=== PATIENT | male | born 1940 | race Two or more races ===

== ENCOUNTER 2018-06-17 21:40 | Observation (INO) | payer OTHER ==
[~2018-06-17] VITALS: Ht 152.4 cm; Wt 60.5 kg
[~2018-06-17 21:40] MED LIST: ASPI-535 PO; LISI-313 PO; METO25TA4 PO; NITR0.4T39 SL; SIMV20TA2 PO
[2018-06-17 21:46] VITALS: Ht 152.4 cm; Wt 60.5 kg
--- NOTE | 2018-06-17 22:14 | ERD ---
ER Documentation Chief Complaint Chief Complaint L arm pain x 1day, no injury; was told 2 go 2 ED x Trop work-ups HPI Very pleasant 77-year-old gentleman history of cardiac disease with 2 stents who presents with mild chest discomfort and left arm discomfort that is anginal equivalent over the past 2 days. Patient states that he took aspirin today. Patient only has 1 out of 10 discomfort currently. He went to an urgent care wh o sent him to the emergency room. Patient denies pleuritic pain fevers chills or cough. ROS All systems reviewed and are negative except as per history of present illness. Medications Home Meds Reported Medications Aspirin Ec (Aspir 81) 81 Mg Tablet.dr, 81 MG PO DAILY 12/27/10 Simvastatin (Simvastatin) 20 Mg Tablet, 20 MG PO DAILY 12/27/10 Nitroglycerin* (Nitrostat*) 0.4 Mg Tab.subl, 0.4 MG SL Q5MIN PRN 12/27/10 Lisinopril* (Lisinopril*) 5 Mg Tablet, 5 MG PO DAILY 12/27/10 Metoprolol Tartrate* (Lopressor*) 25 Mg Tablet, 25 MG PO 1/2 TAB BID 12/27/10 Allergies Allergies: Coded Allergies: No Known Drug Allergies (Verified Allergy, 12/27/10) PMhx/Soc History of Surgery: Yes (CABG 1997, ANGIOGRAM 2004) Anesthesia Reaction: No Hx Neurological Disorder: No Hx Respiratory Disorders: No Hx Cardiac Disorders: Yes (ANGIOGRAM) Hx Psychiatric Problems: No Hx Miscellaneous Medical Probl: No Hx Alcohol Use: No Hx Substance Use: No Hx Tobacco Use: No FmHx Family History: No diabetes Physical Exam Vitals Vital Signs Date Temp Pulse Resp B/P (MAP) Pulse Ox O2 O2 Flow FiO2 Time Delivery Rate 06/17/18 97.9 67 18 175/80 99 21:46 (111) Physical Exam General: Well developed, well nourished, no acute distress Head: Normocephalic, atraumatic. Eyes: Pupils equally reactive, EOM intact ENT: Moist mucous membranes Neck: Supple, no lymphadenopathy Respiratory: Lungs clear bilaterally, no distress Cardiovascular: RRR, no murmurs, rubs, or gallops Abdominal: Soft, non-tender, non-distended, no peritoneal signs : Deferred MSK: No edema, no unilateral swelling, 5/5 strength Neurologic: Alert and oriented, moving all extremities, normal speech, no focal weakness, no cerebellar signs Skin: No rash Psych: Normal mood Result Diagram: 06/17/18221406/17/182214 Results 24 hrs Laboratory Tests Test 06/17/18 22:15 White Blood Count 6.8 10^3/ul Red Blood Count 4.47 10^6/ul Hemoglobin 14.1 g/dl Hematocrit 42.1 % Mean Corpuscular Volume 94.2 fl Mean Corpuscular Hemoglobin 31.5 pg Mean Corpuscular Hemoglobin Concent 33.5 g/dl Red Cell Distribution Width 12.2 % Platelet Count 117 10^3/UL Mean Platelet Volume 11.0 fl Immature Granulocytes % 0.300 % Neutrophils % 52.6 % Lymphocytes % 28.9 % Monocytes % 9.9 % Eosinophils % 7.1 % Basophils % 1.2 % Nucleated Red Blood Cells % 0.0 /100WBC Immature Granulocytes # 0.020 10^3/ul Neutrophils # 3.6 10^3/ul Lymphocytes # 2.0 10^3/ul Monocytes # 0.7 10^3/ul Eosinophils # 0.5 10^3/ul Basophils # 0.1 10^3/ul Nucleated Red Blood Cells # 0.0 10^3/ul Sodium Level 137 mmol/L Potassium Level 3.8 mmol/L Chloride Level 102 mmol/L Carbon Dioxide Level 29 mmol/L Anion Gap 6 Blood Urea Nitrogen 12 mg/dl Creatinine 0.77 mg/dl Est Glomerular Filtrat Rate mL/min mL/min Glucose Level 171 mg/dl Calcium Level 9.4 mg/dl Troponin I < 0.012 ng/ml Procedures/MDM EKG, MONITORS, & DIAGNOSTIC IMAGING: EKG: I reviewed and interpreted a 12-lead EKG. Rhythm: Normal sinus rhythm ST Changes: No contiguous ST segment elevations T waves: No contiguous T wave inversions Impression: [No evidence of acute cardiac ischemia] Repeat EKG: EKG: I reviewed and interpreted a 12-lead EKG. Rhythm: Normal sinus rhythm ST Changes: No contiguous ST segment elevations T waves: No contiguous T wave inversions Impression: [No evidence of acute cardiac ischemia] Chest x-ray: I reviewed and interpreted a 1 view of the chest Mediastinum: No enlargement Cardiac silhouette: No cardiomegaly Airspace: Clear lung ortega bilaterally without evidence of pneumothorax Bones: No evidence of fracture PROCEDURES: [None] LAB INTERPRETATION: * Negative troponin MEDICAL DECISION MAKING: The patient's history, physical exam and clinical presentation is concerning for possible cardiogenic etiology and acute coronary syndrome. Based on the patient's clinical exam and history and risk factors, I have a much lower clinical concern for pulmonary embolism, acute aortic dissection, pneumothorax, pneumonia, cardiac tamponade HEART Score: 4 MACE Rate: 16.6% Shared Decision Making: We had a conversation regarding risk stratification, MACE rate, and the risks, benefits, alternatives of disposition planning options. Disposition planning: Admit ER COURSE: * ASA has been taken prior to arrival. * No chest pain currently CONSULTATION: Primary administration manager, Dr. Stacy landon DISPOSITION PLAN: Telemetry admission for management of chest pain to rule out acute coronary syndrome, serial enzymes, risk stratification and consideration of provocative testing CONSULTATION: Accepting care team and consultations: I discussed the current laboratory data, diagnostic imaging and emergency care provided. Admitting team: Dr. Hernadez Admitting team indication: Insurance directed Departure Diagnosis: Primary Impression: Chest pain Chest pain type: unspecified Qualified Codes: R07.9 - Chest pain, unspeci fied Condition: Stable VITO ANDRADE MD Jun 17, 2018 22:14
[2018-06-17] MEDS ORDERED: ACETAMINOPHEN 325 MG TAB PO PRN (23:30)
[2018-06-17] MEDS ORDERED: ONDANSETRON 4 MG INJ IV PRN (23:30)
--- NOTE | 2018-06-17 23:34 | HP ---
Date/Time of Note Date/Time of Note DATE: 06/17/18 TIME: 23:34 Assessment/Plan VTE Prophylaxis Pharmacological prophylaxis: heparin Lines/Catheters IV Catheter Type (from Nrs): Saline Lock Assessment/Plan Hospital Course 77-year-old male with with a history of CAD with stent x2 4 years ago, CABG about 20 years ago here was left arm pain and chest pain times 2 days. Will rule out ACS PLAN Telemetry monitoring Supplemental oxygen, aspirin, statin, beta-lexus, ACEI. Trend troponin 2D echo and cardiology consult Patient stated that he has to go home tomorrow, possibly in the morning because his is status post knee surgery and is alone at home. Result Diagram: 06/17/18 2215 06/17/18 2215 Results 24hrs Laboratory Tests Test 06/17/18 22:15 White Blood Count 6.8 Red Blood Count 4.47 L Hemoglobin 14.1 Hematocrit 42.1 Mean Corpuscular Volume 94.2 Mean Corpuscular Hemoglobin 31.5 Mean Corpuscular Hemoglobin Concent 33.5 Red Cell Distribution Width 12.2 Platelet Count 117 L Mean Platelet Volume 11.0 H Immature Granulocytes % 0.300 Neutrophils % 52.6 Lymphocytes % 28.9 Monocytes % 9.9 Eosinophils % 7.1 H Basophils % 1.2 Nucleated Red Blood Cells % 0.0 Immature Granulocytes # 0.020 Neutrophils # 3.6 Lymphocytes # 2.0 Monocytes # 0.7 Eosinophils # 0.5 Basophils # 0.1 Nucleated Red Blood Cells # 0.0 Sodium Level 137 Potassium Level 3.8 Chloride Level 102 Carbon Dioxide Level 29 Anion Gap 6 Blood Urea Nitrogen 12 Creatinine 0.77 Est Glomerular Filtrat Rate mL/min Glucose Level 171 Calcium Level 9.4 Troponin I < 0.012 HPI/ROS Admit Date/Time Admit Date/Time Hx of Present Illness This is a 77-year-old male with with a history of hypertension, CAD with stent x2 4 years ago, CABG about 20 years ago. Patient presented to ER complaining of left arm pain. Symptoms been going on for about 2 days. On further questioning, he said he also has been having very vague mild left-sided chest pain as well. First troponin EKG in the ER negative. Currently patient is feeling well. He said he wants to go home tomorrow because his had a knee surgery and is all alone at home. 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 PMH/Family/Social Past Medical History Medical History: other (See HPI) Medications Current Medications Ondansetron HCl (Zofran Inj) 4 mg ER BRIDGE PRN IV NAUSEA AND/OR VOMITING; Start 06/17/18 at 23:30; Stop 06/18/18 at 23:29 Acetaminophen (Tylenol Tab) 650 mg ER BRIDGE PRN PO MILD PAIN(1-3)OR ELEVATED TEMP; Start 06/17/18 at 23:30; Stop 06/18/18 at 23:29 Coded Allergies: No Known Drug Allergies (Verified Allergy, 12/27/10) Past Surgical History Past Surgical Hx: other (See HPI) Family History Significant Family History: no pertinent family hx Social History Alcohol Use: none Smoking Status: Never smoker Drug Use: none Exam/Review of Systems Vital Signs Vitals Vital Signs Date Temp Pulse Resp B/P (MAP) Pulse Ox O2 O2 Flow FiO2 Time Delivery Rate 06/17/18 97.9 67 18 175/80 99 21:46 (111) Exam Constitutional: alert, oriented, well developed Head: normocephalic, atraumatic Eyes: EOMI, PERRL Respiratory: clear to auscultation, normal air movement Cardiovascular: regular rate and rhythm, nl pulses Gastrointestinal: soft, non-tender Extremities: normal pulses EDMUND SINGH MD Jun 17, 2018 23:34
[2018-06-18] MEDS ORDERED: NITROGLYCERIN (SL) 0.4 MG TAB SL PRN
[2018-06-18] MEDS ORDERED: NACL 0.9% 3 ML SYG IV SCH
[2018-06-18] MEDS ORDERED: ACETAMINOPHEN 325 MG TAB PO PRN
[2018-06-18] MEDS ORDERED: HYDROCODONE/APAP (5/325) TAB PO PRN
[2018-06-18] MEDS ORDERED: ONDANSETRON 4 MG INJ IV PRN
[2018-06-18] MEDS ORDERED: ALBUTEROL/IPRATROPIUM (NEB) 3 ML AMP HHN PRN
[2018-06-18 04:00] VITALS: PULSE 56
--- NOTE | 2018-06-18 07:22 | PN ---
Date/Time of Note Date/Time of Note DATE: 06/18/18 TIME: 07:20 Assessment/Plan VTE Prophylaxis SCD applied (from Nsg): Yes Pharmacological prophylaxis: NA/contraindicated Pharm contraindication: low risk/ambulating Lines/Catheters IV Catheter Type (from Nrsg): Saline Lock Assessment/Plan Assessment/Plan 1. Chest pain 2. H/o CAD s/p stent 3. PreDM 4. Dyslipidemia 5. Chronic anemia Plan: continue tele cardio consult 2D echo supportive care Result Diagram: 06/18/18 0450 06/18/18 0450 Results 24hrs Laboratory Tests Test 06/17/18 22:15 06/18/18 04:50 White Blood Count 6.8 7.2 Red Blood Count 4.47 L 4.28 L Hemoglobin 14.1 13.6 L Hematocrit 42.1 39.8 L Mean Corpuscular Volume 94.2 93.0 Mean Corpuscular Hemoglobin 31.5 31.8 Mean Corpuscular Hemoglobin Concent 33.5 34.2 Red Cell Distribution Width 12.2 12.2 Platelet Count 117 L 103 L Mean Platelet Volume 11.0 H 11.1 H Immature Granulocytes % 0.300 0.400 Neutrophils % 52.6 51.8 Lymphocytes % 28.9 29.3 Monocytes % 9.9 8.9 Eosinophils % 7.1 H 8.8 H Basophils % 1.2 0.8 Nucleated Red Blood Cells % 0.0 0.0 Immature Granulocytes # 0.020 0.030 Neutrophils # 3.6 3.7 Lymphocytes # 2.0 2.1 Monocytes # 0.7 0.6 Eosinophils # 0.5 0.6 H Basophils # 0.1 0.1 Nucleated Red Blood Cells # 0.0 0.0 Sodium Level 137 138 Potassium Level 3.8 3.8 Chloride Level 102 103 Carbon Dioxide Level 29 28 Anion Gap 6 7 Blood Urea Nitrogen 12 10 Creatinine 0.77 0.73 Est Glomerular Filtrat Rate mL/min Glucose Level 171 101 # Calcium Level 9.4 9.3 Troponin I < 0.012 < 0.012 Hemoglobin A1c 6.3 H Magnesium Level 1.7 Total Bilirubin 0.5 Direct Bilirubin 0.00 Indirect Bilirubin 0.5 Aspartate Amino Transf (AST/SGOT) 18 Alanine Aminotransferase (ALT/SGPT) 26 Alkaline Phosphatase 72 Creatine Kinase 55 Creatine Kinase Index 1.6 Creatinine Kinase MB (Mass) 0.87 Total Protein 6.2 Albumin 3.5 Globulin 2.70 Albumin/Globulin Ratio 1.29 Triglycerides Level 48 Cholesterol Level 123 LDL Cholesterol, Calculated 67 HDL Cholesterol 46 Cholesterol/HDL Ratio 2.6 Thyroid Stimulating Hormone (TSH) 4.680 Subjective 24 Hr Interval Summary Free Text/Dictation no more cp Exam/Review of Systems Vital Signs Vitals Vital Signs Date Temp Pulse Resp B/P (MAP) Pulse Ox O2 O2 Flow FiO2 Time Delivery Rate 06/18/18 56 04:00 06/18/18 14 146/74 99 Room Air 02:05 (98) 06/17/18 98.6 22:10 Exam General: A&O x3, answering questions appropriately HEENT: NC/ AT. PERRL. EOM intact Neck: supple CVS: S1, S2, RRR. no murmurs. no pain on chest wall palpation Lungs: CTA b/l. no wheezing or rhonchi Abd: soft, nontender, +BS Ext: moving all extremities skin: no rashes Medications Medications Current Medications Ondansetron HCl (Zofran Inj) 4 mg ER BRIDGE PRN IV NAUSEA AND/OR VOMITING; Start 06/17/18 at 23:30; Stop 06/18/18 at 23:29 Acetaminophen (Tylenol Tab) 650 mg ER BRIDGE PRN PO MILD PAIN(1-3)OR ELEVATED TEMP; Start 06/17/18 at 23:30; Stop 06/18/18 at 23:29 IV Flush (NS 3 ml) 3 ml PER PROTOCOL IV ; Start 06/18/18 at 00:00 Ondansetron HCl (Zofran Inj) 4 mg Q6H PRN IV NAUSEA AND/OR VOMITING; Start 06/18/18 at 00:00 Acetaminophen (Tylenol Tab) 650 mg Q6H PRN PO PAIN LEVEL 1-3 OR FEVER; Start 06/18/18 at 00:00 Acetaminophen/ Hydrocodone Bitart ([place] (5/325)) 1 tab Q6H PRN PO PAIN LEVEL 4-6; Start 06/18/18 at 00:00 Heparin Sodium (Porcine) (Heparin (5000 Units/1ml)) 5,000 unit Q12 SC ; Start 06/18/18 at 09:00 Albuterol/ Ipratropium (Duoneb) 3 ml Q2H RESP THERAPY PRN HHN SHORTNESS OF BREATH; Start 06/18/18 at 00:00 Aspirin (Halfprin) 81 mg DAILY PO ; Start 06/18/18 at 09:00 Lisinopril (Zestril) 5 mg DAILY PO ; Start 06/18/18 at 09:00 Metoprolol Tartrate (Lopressor) 25 mg BID PO ; Start 06/18/18 at 09:00 Nitroglycerin (Nitroglycerin (Sl Tab) 0.4 Mg) 0.4 tab Q5M PRN SL cp; Start 06/18/18 at 00:00 Atorvastatin Calcium (Lipitor) 10 mg DAILY@21 PO ; Start 06/18/18 at 21:00 KAMILA LEON Jun 18, 2018 07:22
[2018-06-18 07:39] VITALS: BP 143/77; PULSE 69; RESP 17
[2018-06-18 08:00] VITALS: PULSE 82
[2018-06-18] MEDS ORDERED: HEPARIN 5,000 UNIT/1 ML VIAL SC SCH (09:00)
[2018-06-18] MEDS ORDERED: ASPIRIN (EC) 81 MG TAB PO SCH (09:00)
[2018-06-18] MEDS ORDERED: METOPROLOL 25 MG TAB PO SCH (09:00)
[2018-06-18] MEDS ORDERED: NON-FORMULARY/PATIENT OWN MED (Simvastatin 20 MG) PO SCH (09:00)
[2018-06-18] MEDS ORDERED: LISINOPRIL 5 MG TAB PO SCH (09:00)
--- NOTE | 2018-06-18 09:07 | CONS ---
Date/Time of Note Date/Time of Note DATE: 06/18/18 TIME: 08:42 Assessment/Plan Assessment/Plan Hospital Course Atypical pain- L arm pain, at rest, no associated symptoms. no pain otherwise with activity. r/o for ACS negative ekg/trop x 2. normal fxn on echo without acute wma. ok to d/c home with close outpt follow up given atypical symptoms and no current pain and negative studies as above CAD - cont asa - cont plavix - cont statin - cont bb - prn sln - close outpt f/u HLD on statin HTN controlled Result Diagram: 06/18/18 0450 06/18/18 045 Results 24hrs Laboratory Tests Test 06/17/18 22:15 06/18/18 04:50 White Blood Count 6.8 7.2 Red Blood Count 4.47 L 4.28 L Hemoglobin 14.1 13.6 L Hematocrit 42.1 39.8 L Mean Corpuscular Volume 94.2 93.0 Mean Corpuscular Hemoglobin 31.5 31.8 Mean Corpuscular Hemoglobin Concent 33.5 34.2 Red Cell Distribution Width 12.2 12.2 Platelet Count 117 L 103 L Mean Platelet Volume 11.0 H 11.1 H Immature Granulocytes % 0.300 0.400 Neutrophils % 52.6 51.8 Lymphocytes % 28.9 29.3 Monocytes % 9.9 8.9 Eosinophils % 7.1 H 8.8 H Basophils % 1.2 0.8 Nucleated Red Blood Cells % 0.0 0.0 Immature Granulocytes # 0.020 0.030 Neutrophils # 3.6 3.7 Lymphocytes # 2.0 2.1 Monocytes # 0.7 0.6 Eosinophils # 0.5 0.6 H Basophils # 0.1 0.1 Nucleated Red Blood Cells # 0.0 0.0 Sodium Level 137 138 Potassium Level 3.8 3.8 Chloride Level 102 103 Carbon Dioxide Level 29 28 Anion Gap 6 7 Blood Urea Nitrogen 12 10 Creatinine 0.77 0.73 Est Glomerular Filtrat Rate mL/min Glucose Level 171 101 # Calcium Level 9.4 9.3 Troponin I < 0.012 < 0.012 Hemoglobin A1c 6.3 H Magnesium Level 1.7 Total Bilirubin 0.5 Direct Bilirubin 0.00 Indirect Bilirubin 0.5 Aspartate Amino Transf (AST/SGOT) 18 Alanine Aminotransferase (ALT/SGPT) 26 Alkaline Phosphatase 72 Creatine Kinase 55 Creatine Kinase Index 1.6 Creatinine Kinase MB (Mass) 0.87 Total Protein 6.2 Albumin 3.5 Globulin 2.70 Albumin/Globulin Ratio 1.29 Triglycerides Level 48 Cholesterol Level 123 LDL Cholesterol, Calculated 67 HDL Cholesterol 46 Cholesterol/HDL Ratio 2.6 Thyroid Stimulating Hormone (TSH) 4.680 Consultation Date/Type/Reason Admit Date/Time 06/17/2018 Date of Consultation: Jun 18, 2018 Type of Consult Cardiology Reason for Consultation L arm pain Requesting Provider: KAMILA LEON Hx of Present Illness This 77 year-old male with diabetes, hypertension hyperlipidemia, CAD. CABG 1996, 2010 with occluded SVG OM, RCA, patent Bryan-LAD, s/p PCI to LM, OM1 Pt reports L arm pain at night x 2 nights. wakes him up mild pain, lasts a few minutes, no associated chest pain/pressure, n/v, sob, dizziness, palpitations. non positional he states. otherwise walking 30 mins no cp/sob/arm pain. denies prevoius arm pain/injury. previously had chest pain wiht exertion prior to PCI/CABG. denies any heart failure symptoms. no syncpoe. no recent illness. compliant with medications all other systems negative Past Medical History Active Problems CAD (coronary artery disease), [place] coronary artery (414.01) (I25.10) Multivessel coronary artery disease with acute NM , status post coronary bypass graft surgery and bypass graft disease in 1996. Occluded all vein grafts Promus 2.5X18 I omb and Promus 3.0X12 Protected L main in to Circ ostium Dec 2010 BRYAN to LAD was patent Carotid artery bruit (785.9) (R09.89) S/P R CEA 2012 and has BRUIT R carotid Diabetes mellitus (250.00) (E11.9) Glaucoma (365.9) (H40.9) Hyperlipidemia (272.4) (E78.5) Hypertension (401.9) (I10) Past Medical History History of myocardial infarction (412) (I25.2) Surgical History History of CABG History of Carotid Thromboendarterectomy L carotid EA Dec 2010 Social History Never a smoker No alcohol use Retired Family History Family history of hypertension (V17.49) (Z82.49) Medical History: other (See HPI) Medications Current Medications Ondansetron HCl (Zofran Inj) 4 mg ER BRIDGE PRN IV NAUSEA AND/OR VOMITING; Start 06/17/18 at 23:30; Stop 06/18/18 at 23:29 Acetaminophen (Tylenol Tab) 650 mg ER BRIDGE PRN PO MILD PAIN(1-3)OR ELEVATED TEMP; Start 06/17/18 at 23:30; Stop 06/18/18 at 23:29 IV Flush (NS 3 ml) 3 ml PER PROTOCOL IV ; Start 06/18/18 at 00:00 Ondansetron HCl (Zofran Inj) 4 mg Q6H PRN IV NAUSEA AND/OR VOMITING; Start 06/18/18 at 00:00 Acetaminophen (Tylenol Tab) 650 mg Q6H PRN PO PAIN LEVEL 1-3 OR FEVER; Start 06/18/18 at 00:00 Acetaminophen/ Hydrocodone Bitart ([place] (5/325)) 1 tab Q6H PRN PO PAIN LEVEL 4-6; Start 06/18/18 at 00:00 Heparin Sodium (Porcine) (Heparin (5000 Units/1ml)) 5,000 unit Q12 SC Last administered on 06/18/18at 08:11; Admin Dose 5,000 UNIT; Start 06/18/18 at 09:00 Albuterol/ Ipratropium (Duoneb) 3 ml Q2H RESP THERAPY PRN HHN SHORTNESS OF [place] ATH; Start 06/18/18 at 00:00 Aspirin (Halfprin) 81 mg DAILY PO Last administered on 06/18/18at 08:10; Admin Dose 81 MG; Start 06/18/18 at 09:00 Lisinopril (Zestril) 5 mg DAILY PO Last administered on 06/18/18at 08:10; Admin Dose 5 MG; Start 06/18/18 at 09:00 Metoprolol Tartrate (Lopressor) 25 mg BID PO Last administered on 06/18/18at 08:10; Admin Dose 25 MG; Start 06/18/18 at 09:00 Nitroglycerin (Nitroglycerin (Sl Tab) 0.4 Mg) 0.4 tab Q5M PRN SL cp; Start 06/18/18 at 00:00 Atorvastatin Calcium (Lipitor) 10 mg DAILY@21 PO ; Start 06/18/18 at 21:00 Allergies: Coded Allergies: No Known Drug Allergies (Verified Allergy, 12/27/10) Past Surgical History Past Surgical Hx: other (See HPI) Social History Alcohol Use: none Smoking Status: Never smoker Drug Use: none Exam/Review of Systems Vital Signs Vitals Vital Signs Date Temp Pulse Resp B/P (MAP) Pulse Ox O2 O2 Flow FiO2 Time Delivery Rate 06/18/18 98.2 69 17 143/77 98 07:39 (99) 06/18/18 Room Air 02:05 Exam Constitutional: alert, oriented Psych: no complaints, nl mood/affect Head: normocephalic, atraumatic Eyes: nl conjunctiva ENMT: nl external ears & nose, nl lips & teeth, nl nasal mucosa & septum Neck: supple, non-tender; No jvd Respiratory: clear to auscultation, normal air movement Cardiovascular: regular rate and rhythm, nl pulses, systolic murmur Gastrointestinal: soft, nl liver, spleen, non-tender Musculoskeletal: nl extremities to inspection, nl gait and stance Extremities: normal pulses Neurological: TROMPER II-XII intact, nl mental status, nl speech, nl strength Additional Comments no ttp L arm, FROM Medications Medications Current Medications Ondansetron HCl (Zofran Inj) 4 mg ER BRIDGE PRN IV NAUSEA AND/OR VOMITING; Start 06/17/18 at 23:30; Stop 06/18/18 at 23:29 Acetaminophen (Tylenol Tab) 650 mg ER BRIDGE PRN PO MILD PAIN(1-3)OR ELEVATED TEMP; Start 06/17/18 at 23:30; Stop 06/18/18 at 23:29 IV Flush (NS 3 ml) 3 ml PER PROTOCOL IV ; Start 06/18/18 at 00:00 Ondansetron HCl (Zofran Inj) 4 mg Q6H PRN IV NAUSEA AND/OR VOMITING; Start 06/18/18 at 00:00 Acetaminophen (Tylenol Tab) 650 mg Q6H PRN PO PAIN LEVEL 1-3 OR FEVER; Start 06/18/18 at 00:00 Acetaminophen/ Hydrocodone Bitart ([place] (5/325)) 1 tab Q6H PRN PO PAIN LEVEL 4-6; Start 06/18/18 at 00:00 Heparin Sodium (Porcine) (Heparin (5000 Units/1ml)) 5,000 unit Q12 SC Last administered on 06/18/18at 08:11; Admin Dose 5,000 UNIT; Start 06/18/18 at 09:00 Albuterol/ Ipratropium (Duoneb) 3 ml Q2H RESP THERAPY PRN HHN SHORTNESS OF BREATH; Start 06/18/18 at 00:00 Aspirin (Halfprin) 81 mg DAILY PO Last administered on 06/18/18 08:10; Admin Dose 81 MG; Start 06/18/18 at 09:00 Lisinopril (Zestril) 5 mg DAILY PO Last administered on 06/18/18at 08:10; Admin Dose 5 MG; Start 06/18/18 at 09:00 Metoprolol Tartrate (Lopressor) 25 mg BID PO Last administered on 06/18/18 08:10; Admin Dose 25 MG; Start 06/18/18 at 09:00 Nitroglycerin (Nitroglycerin (Sl Tab) 0.4 Mg) 0.4 tab Q5M PRN SL cp; Start 06/18/18 at 00:00 Atorvastatin Calcium (Lipitor) 10 mg DAILY@21 PO ; Start 06/18/18 at 21:00 Imaging Imaging cxr report reviewed EKG reviewed: NSR< RBBB< twi III, V6 unchanged from previous echo reviewed prelim- normal lv fxn. no acute wma HANNAH SMITH Jun 18, 2018 08:52
--- NOTE | 2018-06-18 10:04 | DS ---
Date/Time of Note Date/Time of Note DATE: 06/18/18 TIME: 10:00 Discharge Summary Admission/Discharge Info Admit Date/Time Jun 17, 2018 at 23:28 Discharge Date/Time Discharge Diagnosis 1. Chest pain: resolved, ACS ruled out 2. CAD 3. HTN: improved control 4. PreDM 5. chronic anemia 6. Dyslipidemia . Consults Cardiology: Jermaine . Hospital Course admitted and ruled out for chest pain. seen by cardio and cleared for discharge d. Left after eval prior to discharge instructions given . 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 It's very important . Primary Care Provider Stephanie Kumar MD Time spent on discharge: > 30 minutes Pending Labs Laboratory Tests Test 06/17/18 22:15 06/18/18 04:50 White Blood Count 6.8 10^3/ul (4.8-10.8) 7.2 10^3/ul (4.8-10.8) Red Blood Count 4.47 10^6/ul (4.70-6.10) 4.28 10^6/ul (4.70-6.10) Hemoglobin 14.1 g/dl (14.0-18.0) 13.6 g/dl (14.0-18.0) Hematocrit 42.1 % (42.0-52.0) 39.8 % (42.0-52.0) Mean Corpuscular Volume 94.2 fl (82.0-101.0) 93.0 fl (82.0-101.0) Mean Corpuscular 31.5 pg (29.0-33.0) 31.8 pg (29.0-33.0) Hemoglobin Mean Corpuscular 33.5 g/dl (32.0-37.0) 34.2 g/dl (32.0-37.0) Hemoglobin Concent Red Cell Distribution 12.2 % (11.5-14.5) 12.2 % (11.5-14.5) Width Platelet Count 117 10^3/UL (140-415) 103 10^3/UL (140-415) Mean Platelet Volume 11.0 fl (7.4-10.4) 11.1 fl (7.4-10.4) Immature Granulocytes % 0.300 % (0.001-0.429) 0.400 % (0.001-0.429) Neutrophils % 52.6 % (39.0-77.0) 51.8 % (39.0-77.0) Lymphocytes % 28.9 % (15.0-51.0) 29.3 % (15.0-51.0) Monocytes % 9.9 % (0.0-11.0) 8.9 % (0.0-11.0) Eosinophils % 7.1 % (0.0-7.0) 8.8 % (0.0-7.0) Basophils % 1.2 % (0.0-2.0) 0.8 % (0.0-2.0) Nucleated Red Blood Cells 0.0 /100WBC (0.0-0.0) 0.0 /100WBC (0.0-0.0) % Immature Granulocytes # 0.020 10^3/ul (0.0-0.031) 0.030 10^3/ul (0.0-0.031) Neutrophils # 3.6 10^3/ul (1.6-7.5) 3.7 10^3/ul (1.6-7.5) Lymphocytes # 2.0 10^3/ul (0.8-2.9) 2.1 10^3/ul (0.8-2.9) Monocytes # 0.7 10^3/ul (0.3-0.9) 0.6 10^3/ul (0.3-0.9) Eosinophils # 0.5 10^3/ul (0.0-0.5) 0.6 10^3/ul (0.0-0.5) Basophils # 0.1 10^3/ul (0.0-0.1) 0.1 10^3/ul (0.0-0.1) Nucleated Red Blood Cells 0.0 10^3/ul (0.0-0.0) 0.0 10^3/ul (0.0-0.0) # Sodium Level 137 mmol/L (135-144) 138 mmol/L (135-144) Potassium Level 3.8 mmol/L (3.5-5.1) 3.8 mmol/L (3.5-5.1) Chloride Level 102 mmol/L (97-110) 103 mmol/L (97-110) Carbon Dioxide Level 29 mmol/L (21-31) 28 mmol/L (21-31) Anion Gap 6 (5-13) 7 (5-13) Blood Urea Nitrogen 12 mg/dl (7-20) 10 mg/dl (7-20) Creatinine 0.77 mg/dl (0.61-1.24) 0.73 mg/dl (0.61-1.24) Est Glomerular Filtrat mL/min (>60) mL/min (>60) Rate mL/min Glucose Level 171 mg/dl (70-220) 101 mg/dl (70-220) Calcium Level 9.4 mg/dl (8.4-10.2) 9.3 mg/dl (8.4-10.2) Troponin I < 0.012 < 0.012 ng/ml (0.000-0.120) ng/ml (0.000-0.120) Hemoglobin A1c 6.3 % (0-5.9) Magnesium Level 1.7 mg/dl (1.7-2.5) Total Bilirubin 0.5 mg/dl (0.2-1.3) Direct Bilirubin 0.00 mg/dl (0.00-0.20) Indirect Bilirubin 0.5 mg/dl (0-1.1) Aspartate Amino 18 IU/L (15-46) Transf (AST/SGOT) Alanine 26 IU/L (13-69) Aminotransferase (ALT/SGPT ) Alkaline Phosphatase 72 IU/L (42-121) Creatine Kinase 55 IU/L (23-200) Creatine Kinase Index 1.6 Creatinine Kinase MB 0.87 ng/ml (0.0-2.4) (Mass) Total Protein 6.2 g/dl (6.1-8.1) Albumin 3.5 g/dl (3.3-4.9) Globulin 2.70 g/dl (1.3-3.2) Albumin/Globulin Ratio 1.29 Triglycerides Level 48 mg/dl (0-149) Cholesterol Level 123 mg/dl (100-200) LDL Cholesterol, 67 mg/dl Calculated HDL Cholesterol 46 mg/dl (31-75) Cholesterol/HDL Ratio 2.6 RATIO Thyroid Stimulating 4.680 MIU/L (0.465-4.680) Hormone (TSH) KAMILA LEON Jun 18, 2018 10:04
[2018-06-18] MEDS ORDERED: ATORVASTATIN 10 MG TAB PO SCH (21:00)
--- NOTE | 2018-06-21 09:09 | RADRPT ---
Echocardiogram Report Patient Name: JENA CARTER Gender: Male Date: 1940 Study Date: 18-Jun-2018 Helmet Hat Sweatband Puncher: Doming[facility] Yo [facility] Location: [id number] Ref. Physician: EDMUND SINGH Quality: Adequate Procedures: Transthoracic echocardiogram with complete 2D, M-Mode, and doppler examination. Indications: Chest Pain. 2D/M Mode Doppler Measurement Value Normal Ranges Measurement Value Normal Ranges LVIDd 2D 4.1 3.5 - 5.6 cm AV Peak Kervin 1.3 m/sec LVIDs 2D 2.9 2.1 - 4.1 cm AV Peak PG 7.0 mmHg FS 2D 28.3 % LVOT Peak Kervin 0.9 m/sec LVPWd 2D 1.0 0.6 - 1.1 cm LVOT Peak PG 3.0 mmHg IVSd 2D 1.0 0.6 - 1.1 cm MV E Peak Kervin 0.9 m/sec IVS/LVPW 2D 1.0 MV A Peak Kervin 1.1 m/sec AoR Diam 2D 3.0 2.0 - 3.7 cm MV E/A 0.8 LA/Ao 2D 1 0 - 1 MV Decel Time 194 msec EDV 2D 67.4 cm3 MV E/A 0.8 ESV 2D 24.9 cm3 TR Peak Kervin 2.1 m/sec LA Dimen 2D 3.8 2.3 - 4.0 cm TR Peak PG 18.0 mmHg RVSP 21.0 mmHg Findings Left Ventricle: Normal left ventricular systolic function. Normal left ventricular cavity size. Normal left ventricular wall thickness. Ejection fraction is visually estimated at 55 %. Tissue Doppler/Mitral Doppler indices are consistent with impaired relaxation (Stage I diastolic dysfunction). 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 Resting Segmental Wall Motion Analysis: Hypokinesis is found in the basal inferior segment. Wall motion score is 2.00. Right Ventricle: Normal right ventricular size. Normal right ventricular systolic function. Left Atrium: The left atrium is normal in size. Right Atrium: The right atrium is normal in size. Mitral Valve: Mild mitral annular calcification. Trace mitral regurgitation. Aortic Valve: No significant aortic stenosis or insufficiency. Aortic cusps appear mildly calcified. Trace aortic valve regurgitation. Tricuspid Valve: Normal appearance of the tricuspid valve. Normal right ventricular systolic pressure. Estimated peak PA systolic pressure 21 mmHg. There is trace tricuspid regurgitation. Pulmonic Valve: Normal pulmonic valve appearance. There is trace pulmonic regurgitation. Pericardium: Normal pericardium with no significant pericardial effusion. Left pleural effusion seen. Aorta: Normal aortic root. IVC: Normal size and normal respiratory collapse consistent with normal right atrial pressure. Conclusions Normal left ventricular systolic function. Normal left ventricular cavity size. Normal left ventricular wall thickness. Ejection fraction is visually estimated at 55 %. Tissue Doppler/Mitral Doppler indices are consistent with impaired relaxation (Stage I diastolic dysfunction). 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 Normal right ventricular size. Normal right ventricular systolic function. The left atrium is normal in size. No significant aortic stenosis or insufficiency. Aortic cusps appear mildly calcified. Trace aortic valve regurgitation. Normal appearance of the tricuspid valve. Normal right ventricular systolic pressure. Estimated peak PA systolic pressure 21 mmHg. There is trace tricuspid regurgitation. Normal pericardium with no significant pericardial effusion. Left pleural effusion seen. Normal aortic root. Normal size and normal respiratory collapse consistent with normal right atrial pressure. No Vegetation, masses, or thrombi seen. Electronically Signed By: Aaron Dean 19-Jun-2018 07:55:02 -0800 Patient Name: JENA CARTER Study Date: 18-Jun-[id number]
== END 2018-06-18 09:50 | disposition left against medical advice (07) ==
LOC: E/R 21:40 → 6WM 23:28 → CANRESERV 06-18 01:02
PROVIDERS: ADMIT Internal Medicine; ATTEND Family Medicine
DX: R07.9 Chest pain, unspecified (principal); I25.10 Atherosclerotic heart disease of native coronary artery without angina pectoris; Z95.5 Presence of coronary angioplasty implant and graft; I10 Essential (primary) hypertension; R73.03 Prediabetes; D64.9 Anemia, unspecified; E78.5 Hyperlipidemia, unspecified; Z79.82 Long term (current) use of aspirin
CPT/HCPCS: 36415; 71045; 80048; 80053; 80061; 82550; 82553; 83036; 83735; 84443; 84484; 85025; 93005; 93306; 99285; G0378; J1644